=== PATIENT | female | born 1935 | race Caucasian/White ===

== ENCOUNTER 2017-12-29 11:19 | Emergency (ER) | payer MEDICARE ==
[~2017-12-29] VITALS: Ht 162.6 cm; Wt 40.0 kg
[2017-12-29] MEDS ORDERED: LORAZEPAM 1MG TABLET PO ONE (12:15)
[2017-12-29 12:16] LABS: BASOPHILS % 0.7 % (0.0-2.0); EOSINOPHILS % 1.3 % (0.0-5.0); HEMATOCRIT. 36.9 % (36.0-48.0); HEMOGLOBIN. 12.5 g/dL (12.0-16.0); LYMPHOCYTES % 12.6 % (20.0-50.0); MEAN CORPUSCULAR HEMOGLOBIN 33.1 pg (28.0-32.0); MEAN CORPUSCULAR VOLUME 97.8 fL (81.0-99.0); MEAN PLATELET VOLUME 8.1 fl (7.4-10.4); MONOCYTES % 6.8 % (2.0-8.0); NEUTROPHILS % 78.6 % (40.0-76.0); PLATELET 305 x1000/uL (130-400); RED BLOOD CELL COUNT 3.77 mill/uL (4.2-5.4); RED CELL DISTRIBUTION WIDTH 12.8 % (11.6-14.6)
[2017-12-29 12:21] LABS: CHLORIDE 105 mEq/L (98-107)
[2017-12-29 12:23] LABS: INR 1.1; PARTIAL THROMBOPLASTIN TIME 31.7 sec (23.4-31.0); PROTHROMBIN TIME 11.4 sec (9.4-11.6)
[2017-12-29 12:36] LABS: BG BASE EXCESS -1.6 mmol/L (-2.0-2.0); BG CARBOXYHEMOGLOBIN 0.3 % (0.5-1.5); BG DEOXYHEMOGLOBIN 1.4 % (0.0-5.0); BG FRACTION INSPIRED OXYGEN 28; BG HCO3 ACT 21.7 mmol/L (22.0-26.0); BG METHEMOGLOBIN 0.3 % (0.0-1.5); BG OXYGEN SATURATION 98.6 % (92.0-98.5); BG PCO2 32.1 mmHg (35.0-45.0); BG PH 7.447 (7.350-7.450); BG PO2 156.7 mmHg (75.0-100.0); BG SAMPLE SITE RIGHT RADIAL; BG TOTAL HEMOGLOBIN 12.1 g/dL (12.0-18.0); BG VENT MODE NASAL CANNULA
[2017-12-29 16:19] VITALS: BP 124/76
== END 2017-12-29 16:22 | disposition home or self-care (01) ==
LOC: ER 12:22
DX: F41.9 Anxiety disorder, unspecified (principal); I11.0 Hypertensive heart disease with heart failure; I50.9 Heart failure, unspecified; E11.9 Type 2 diabetes mellitus without complications; E78.00 Pure hypercholesterolemia, unspecified; E03.9 Hypothyroidism, unspecified; D64.9 Anemia, unspecified; F32.9 Major depressive disorder, single episode, unspecified; I48.91 Unspecified atrial fibrillation; K21.9 Gastro-esophageal reflux disease without esophagitis; Z95.0 Presence of cardiac pacemaker; Z90.710 Acquired absence of both cervix and uterus
CPT/HCPCS: 36415; 36600; 71045; 80053; 82375; 82805; 83690; 83880; 84443; 84484; 85025; 85610; 85730; 93005; 99285

== ENCOUNTER 2018-09-21 10:00 | Emergency (ER) | payer MEDICARE ==
[~2018-09-21] VITALS: Ht 165.1 cm; Wt 52.0 kg
[2018-09-21 12:46] LABS: HEMATOCRIT. 32.5 % (36.0-48.0); HEMOGLOBIN. 10.8 g/dL (12.0-16.0); MEAN CORPUSCULAR HEMOGLOBIN 32.6 pg (28.0-32.0); MEAN CORPUSCULAR VOLUME 97.6 fL (81.0-99.0); MEAN PLATELET VOLUME 7.4 fl (7.4-10.4); PLATELET 251 x1000/uL (130-400); RED BLOOD CELL COUNT 3.33 mill/uL (4.2-5.4); RED CELL DISTRIBUTION WIDTH 13.7 % (11.6-14.6)
[2018-09-21 12:54] LABS: CHLORIDE 107 mEq/L (98-107)
[2018-09-21 13:22] LABS: PLATELET ESTIMATE NORMAL
[2018-09-21 15:07] VITALS: BP 130/70
== END 2018-09-21 15:12 | disposition home or self-care (01) ==
LOC: ER 10:00
DX: J06.9 Acute upper respiratory infection, unspecified (principal); D64.9 Anemia, unspecified; I50.9 Heart failure, unspecified; I48.91 Unspecified atrial fibrillation; J44.9 Chronic obstructive pulmonary disease, unspecified; Z90.710 Acquired absence of both cervix and uterus; Z95.0 Presence of cardiac pacemaker
CPT/HCPCS: 36415; 71045; 80048; 83880; 84484; 87804; 93005; 99284

== ENCOUNTER 2022-12-17 09:08 | Emergency (ER) | payer MEDICARE ==
[~2022-12-17] VITALS: Ht 162.6 cm; Wt 60.0 kg
[~2022-12-17 09:08] MED LIST: ALPR-339 PO; APIX2.5T MT; CAND8TAB MT; FERR324T4 PO; HYDR-4001 PO; IBAN150T21 MT; LEVO100T9 PO; LEVO88TA7 PO; LISI2.5T47 MT; OMEP20CA14 MT; PRAV40TA58 MT; SOTA80TA MT
[2022-12-17 11:48] VITALS: BP 156/76
== END 2022-12-17 12:03 | disposition home or self-care (01) ==
LOC: ER 09:17
DX: M25.512 Pain in left shoulder (principal); I50.9 Heart failure, unspecified; J44.1 Chronic obstructive pulmonary disease with (acute) exacerbation; R51.9 Headache, unspecified
CPT/HCPCS: 72170; 99284

== ENCOUNTER 2023-07-21 16:21 | Emergency (ER) | payer MEDICARE, MEDICAID ==
[~2023-07-21] VITALS: Ht 167.6 cm; Wt 50.0 kg
[2023-07-21 16:27] VITALS: O2SAT 100
[2023-07-21] MEDS ORDERED: SODIUM CHLORIDE 0.9% 500 ML IV ONE (16:45)
[2023-07-21] MEDS ORDERED: AZITHROMYCIN 500 MG in DEXT 5% WATER 250 ML IV STA (17:10)
[2023-07-21] MEDS ORDERED: CEFTRIAXONE 1GM PREMIX 50 ML IV ONE (17:15)
[2023-07-21 17:19] LABS: BASOPHILS % 0.5 % (0.0-2.0); HEMATOCRIT. 35.1 % (36.0-48.0); HEMOGLOBIN. 11.7 g/dL (12.0-16.0); LYMPHOCYTES % 12.8 % (20.0-50.0); MEAN CORPUSCULAR HEMOGLOBIN 30.2 pg (28.0-32.0); MEAN CORPUSCULAR HGB CONC 33.4 g/dL (31.0-37.0); MEAN CORPUSCULAR VOLUME 90.3 fL (81.0-99.0); MEAN PLATELET VOLUME 7.7 fl (7.4-10.4); MONOCYTES % 8.2 % (2.0-8.0); NEUTROPHILS % 77.5 % (40.0-76.0); PLATELET 259 x1000/uL (130-400); RED BLOOD CELL COUNT 3.88 mill/uL (4.2-5.4); RED CELL DISTRIBUTION WIDTH 13.8 % (11.6-14.6); WHITE BLOOD COUNT 8.3 x1000/uL (4.5-11.0)
[2023-07-21] MEDS ORDERED: AZITHROMYCIN 500MG/250ML 250 ML IV STA (17:28)
[2023-07-21 17:33] LABS: ALANINE AMINOTRANSFERASE < 7 IU/L (10-49); ASPARTATE AMINOTRANSFERASE 12 IU/L (<34); BILIRUBIN TOTAL 0.4 mg/dL (0.1-1.0); CALCIUM 9.6 mg/dL (8.7-10.4); CARBON DIOXIDE 30 mEq/L (21-32); CHLORIDE 106 mEq/L (98-107); CREATININE 0.8 mg/dL (0.6-1.0); GLUCOSE 109 mg/dL (70-105); PHOSPHORUS 4.9 mg/dL (2.5-4.9); PROTEIN TOTAL 6.5 g/dL (6.0-8.3); SODIUM 142 mEq/L (136-145); UREA NITROGEN BLOOD 20 mg/dL (9-23)
[2023-07-21 18:12] VITALS: TEMP 98.5
[2023-07-21] MEDS ORDERED: QUETIAPINE FUMARATE 50MG TABLET PO SCH (21:15)
[2023-07-22 03:00] VITALS: BP 101/80; PULSE 80; RESP 18
== END 2023-07-22 16:31 | disposition short-term general hospital (02) ==
LOC: ER 16:21
DX: J18.9 Pneumonia, unspecified organism (principal); I48.91 Unspecified atrial fibrillation; J44.1 Chronic obstructive pulmonary disease with (acute) exacerbation; Z20.822 Contact with and (suspected) exposure to COVID-19
CPT/HCPCS: 99285; 96365; 71045; 96361; 87426; 80053; 83605; 83735; 84100; 85025; 87040; 36415; 84145; 93005; 96368; J0456; J0696; J7040; C9803; 99284; J7060